=== PATIENT | male | born 1975 | race Caucasian/White ===

== ENCOUNTER 2020-11-19 07:59 | Outpatient (CLI) | payer OTHER, SELFPAY ==
--- NOTE | ~2020-11-19 | US_ITS ---
EXAMINATION: US abdomen complete DATE: 11/19/2020 08:25 INDICATION: Right upper quadrant abdominal pain. Weight loss. TECHNIQUE: Multiple grayscale and Doppler ultrasound images of the abdomen were obtained. COMPARISON: CT abdomen and pelvis 05/24/2019 FINDINGS: The pancreas is obscured by bowel gas. Abdominal aorta is normal in caliber. Inferior vena cava is normal. There is diffuse hepatic steatosis. There is normal flow in main portal vein. The gal lbladder is normal in size. No gallstones or gallbladder wall thickening. There was no sonographic Mu rphy sign. The common duct is normal and measures 4 mm. The kidneys are normal in size. The spleen is normal in size. IMPRESSION: 1. Diffuse hepatic steatosis. Reviewed, dictated and finalized at location B.
== END 2020-11-19 08:00 | disposition home or self-care (01) ==
PROVIDERS: PCP Physician Assistant; Visit Provider Physician Assistant
DX: R10.11 Right upper quadrant pain (principal); R63.4 Abnormal weight loss; K76.0 Fatty (change of) liver, not elsewhere classified
CPT/HCPCS: 76700

== ENCOUNTER 2020-12-09 12:59 | Emergency (ER) | payer OTHER, SELFPAY ==
[2020-12-09 13:04] VITALS: BP 139/94; PULSE 87; RESP 18; TEMP 36.4; O2SAT 99
--- NOTE | 2020-12-09 15:34 | ED.GENADULT ---
HPI - General Adult General Chief complaint: Unspecified Stated complaint: NERVE PAIN THROUGHOUT MY BODY Time Seen by Provider: 12/09/20 15:09 Source: patient Mode of arrival: ambulatory Limitations: no limitations History of Present Illness HPI narrative: Patient is a 45-year-old male complaining of nerve pain, bilateral lower extremities, bilateral upper extremities, face and back that started 4 weeks ago. Patient states that he had similar episode back in June when he was diagnosed with diabetes but switch his diet to keto and start exercising lost approximately 50 pounds is now he is off Metformin, and not diabetic anymore. Patient states that he has not had the nerve pain since he was diagnosed with diabetes 6 months ago but has recurred the past 4 weeks. Patient states that he has seen his family doctor and referred to a neurologist but still waiting for an appointment. Patient is not on any neuropathic pain medication. Patient denies any speech or visual disturbance, focal weakness or numbness, chest pain, shortness of breath, abdominal pain, nausea, vomiting, fever or chills. Related Data Allergies Allergy/AdvReac Type Severity Reaction Status Date / Time No Known Allergies Allergy Verified 05/24/19 10:39 Review of Systems Review of Systems: All systems reviewed & are unremarkable except as noted in HPI and below Constitutional: Constitutional: Denies body ache(s), Denies chills, Denies excessive sweating, Denies fatigue, Denies fever(s), Denies headache(s), Denies lethargy, Denies malaise, Denies weakness and Denies weight loss Eyes: Eyes: Denies blurry vision, Denies change in vision and Denies loss of vision ENT: Denies dizziness, Denies ear discharge, Denies headache(s), Denies lip swelling, Denies epistaxis, Denies nasal congestion, Denies neck pain, Denies throat swelling and Denies tongue swelling Cardiovascular: Cardiovascular: Denies chest pain, Denies chest pain at rest, Denies chest pain with activity, Denies diaphoresis, Denies rapid heart rate, Denies edema, Denies irregular heart rhythm, Denies lightheadedness, Denies palpitations, Denies dyspnea and Denies dyspnea on exertion Respiratory: Respiratory: Denies chest congestion, Denies cough, Denies hemoptysis, Denies dyspnea and Denies dyspnea on exertion Gastrointestinal: Gastrointestinal: Denies abdominal pain, Denies melena, Denies hematochezia, Denies diarrhea, Denies nausea, Denies vomiting and Denies hematemesis Musculoskeletal: Musculoskeletal: Denies abnormal gait, Denies deformity, Denies joint swelling, Denies limited range of motion, Denies neck pain and Denies numbness Neurologic: Denies Abnormal speech present, Denies abnormal gait, Denies confusion, Denies dizziness, Denies headache(s), Denies focal weakness, Denies loss of vision, Denies numbness, Denies Other visual disturbances, Denies Sensory deficit (Neuro) and Denies weakness Psychiatric: Psychiatric: Denies confusion, Denies depression, Denies auditory hallucinations, Denies homicidal ideation and Denies suicidal ideation Endocrine: Endocrine: Denies cold intolerance, Denies excessive sweating, Denies fatigue, Denies heat intolerance and Denies palpitations Hematologic/Lymphatic: Hematologic/Lymphatic: Denies easy bleeding and Denies easy bruising Allergic/Immunologic: Allergic/Immunologic: Denies lip swelling, Denies throat swelling and Denies tongue swelling PMF Past Medical History Medical History Healthy adult Obesity (BMI 30.0-34.9) Obesity (BMI 30.0-34.9) (Unknown) Social History Social History Smoking status: Never smoker Alcohol intake: current Gender identity (if verbalized by the patient): Male Exam Const: General: cooperative, healthy appearing, comfortable, no acute distress, well developed, alert and awake; No confusion Orientation/consciousness:
[2020-12-09 15:35] LABS: Basophils Absolute Auto 0.1 K/mm3 (0.0-0.1); Basophils Percent Auto 0.8 % (0.2-1.2); Eosinophils Absolute Auto 0.2 K/mm3 (0-0.3); Eosinophils Percent Auto 1.4 % (0-4.4); Hematocrit 46.4 % (42.0-52.0); Hemoglobin 14.9 g/dL (14.0-18.0); Immature Granulocyte Absolute 0.02 K/mm3 (0.00-0.031); Immature Granulocyte Percent A 0.2 % (0-0.5); Lymphocytes Percent Auto 25.6 % (18.3-44.2); Mean Corpuscular HGB Conc 32.1 g/dl (32-36); Mean Corpuscular Hemoglobin 26.5 pg (26-34); Mean Corpuscular Volume 82.4 fl (80-100); Mean Platelet Volume 10.8 fl (7.4-10.4); Monocytes Absolute Auto 0.7 K/mm3 (0.1-0.6); Monocytes Percent Auto 6.8 % (2.6-8.5); Neutrophils Absolute Auto 6.9 K/mm3 (1.3-6.7); Neutrophils Percent Auto 65.2 % (45.5-73.1); Platelet Count Result 256 k/mm3 (150-375); Red Blood Count 5.63 M/mm3 (4.6-6.20); Red Cell Distribution Width 13.3 % (11.5-14.5); White Blood Count 10.5 K/mm3 (4.5-10.0)
[2020-12-09 15:45] LABS: Alanine Aminotransferase 21 U/L (4-50); Albumin Level 4.9 g/dL (3.5-5.1); Alkaline Phosphatase 38 U/L (38-126); Anion Gap 9 mmol/L (8-16); Aspartate Amino Transferase 29 U/L (17-59); Bilirubin,Total 0.3 mg/dL (0.2-1.3); Blood Urea Nitrogen 17 mg/dL (9-20); Calcium 10.4 mg/dL (8.4-10.2); Carbon Dioxide 27 mmol/L (22-30); Chloride 103 mmol/L (98-107); Estimated CRCL calculation 112 ml/min; Estimated Glomerular Filt Rate > 60; Glucose 106 mg/dL (75-110); Potassium 4.3 mmol/L (3.4-5.0); Sodium 139 mmol/L (137-145)
[2020-12-09 15:50] VITALS: BP 144/86; PULSE 84; RESP 16; O2SAT 98
== END 2020-12-09 18:15 | disposition home or self-care (01) ==
PROVIDERS: Emergency Provider Emergency Medicine; PCP Physician Assistant
DX: G62.9 Polyneuropathy, unspecified (principal); E66.9 Obesity, unspecified; Z68.32 Body mass index [BMI] 32.0-32.9, adult
CPT/HCPCS: 36415; 80053; 85025; 99283

== ENCOUNTER 2023-02-07 13:00 | Emergency (ER) | payer OTHER, SELFPAY ==
[2023-02-07 13:16] VITALS: BP 161/100; PULSE 116; RESP 16; TEMP 36.7; O2SAT 98
--- NOTE | 2023-02-07 14:03 | PC.NURSE ---
provider to provider report given 1400.
--- NOTE | 2023-02-07 14:05 | ED.GENADULT ---
HPI - General Adult General Chief complaint: Headache Stated complaint: pain left side of head Source: patient Mode of arrival: ambulatory Limitations: no limitations History of Present Illness HPI narrative: Patient presents for evaluation of left-sided facial pain. Symptom onset 2 days ago. He indicates the pain is constant, squeezing, severe, rated 10/10 severity. He indicates he has a sensitivity in his gums of left upper and lower side of his mouth. He had similar symptoms in the past for which he saw his primary care provider. They attempted to order some imaging studies unsuccessfully, as his insurance would not cover that. He then saw a dentist who suspected his symptoms could be 2/2 impacted wisdom tooth. He had the tooth extracted and had temporary relief of his pain, however had recurrence a few days later. He does have periods of time where he has dental pain while chewing even soft food, citing pasta as an example. His pain does very in location of the left side of his face. He denies any chest pain or shortness of breath. He denies any facial droop, difficulty breathing or swallowing, visual impairments or change in sense of olfaction. No personal or family hx of CAD. He does not smoke. Related Data Home Medications Medication Instructions Recorded Confirmed gabapentin 600 mg tablet mg 02/07/23 metformin 500 mg tablet mg 02/07/23 Allergies Allergy/AdvReac Type Severity Reaction Status Date / Time No Known Allergies Allergy Verified 02/07/23 13:01 Review of Systems Review of Systems: CONSTITUTIONAL: Denies fever, chills, or sweats. EYES: Denies visual changes, redness, or discharge. ENT: reports left-sided facial pain. Denies rhinorrhea, congestion, sore throat, or otalgia. CARDIOVASCULAR: Denies chest pain, palpitations, or edema. RESPIRATORY: Denies cough or dyspnea. GASTROINTESTINAL: Denies abdominal pain, nausea, vomiting, or diarrhea. GENITOURINARY: Denies dysuria or hematuria. SKIN: Denies rash or itching. MUSCULOSKELETAL: Denies back pain, joint pain, or myalgia. NEUROLOGIC: Denies headache, numbness, dizziness, or weakness. PSYCHIATRIC: Denies anxiety or depression. [facility] Past Medical History Medical History (Updated 02/07/23 @ 14:10 by Meir Vinson, [facility], ) Diabetes Obesity (BMI 30.0-34.9) Obesity (BMI 30.0-34.9) (Unknown) Surgical History Surgical History History of appendectomy Family History Family History Father Family history non-contributory Social History Social History Smoking status: Never smoker Alcohol intake: current Alcohol use details: social Substance use: never Living arrangements: alone Gender identity (if verbalized by the patient): Male Sexual Orientation (if Verbalized by the Patient): Straight or Heterosexual Spiritual care concerns: No Exam Narrative: GENERAL: Well-appearing, well-nourished, and in no acute distress. HEAD: Normocephalic, atraumatic. EYES: PERRLA and EOMI. ENT: Nares clear, no rhinorrhea or epistaxis. Mucous membranes moist. Oropharynx without tonsillar hypertrophy exudate or other lesions. Bilateral TMs pearly asnchez nonbulging. There are several metallic fillings noted to the upper teeth on left side of his mouth. I do not appreciate a dental abscess NECK: Supple. No adenopathy or masses. No carotid bruits or JVD CHEST: Clear to auscultation. No respiratory distress. No wheezes rales or rhonchi HEART: Regular rate and rhythm. No murmur heard. Normal peripheral pulses. ABDOMEN: Soft, nontender, nondistended, normal active bowel sounds. EXTREMITIES: Normal range of motion. No edema. SKIN: Warm, dry, no rash. NEURO: No focal deficits. Alert and oriented x3. PSYCH: Normal mood and affect. Course Course Em
== END 2023-02-07 14:04 | disposition short-term general hospital (02) ==
PROVIDERS: Emergency Provider Nurse Practitioner; PCP Family Medicine
DX: R51.9 Headache, unspecified (principal); E11.9 Type 2 diabetes mellitus without complications; E66.9 Obesity, unspecified; Z68.38 Body mass index [BMI] 38.0-38.9, adult
CPT/HCPCS: 99213; G0463

== ENCOUNTER 2023-02-07 14:19 | Emergency (ER) | payer OTHER, SELFPAY ==
[2023-02-07] VITALS (22 sets, daily range): BP systolic 137–162; BP diastolic 81–116; PULSE 82–114; RESP 10–27; TEMP 36.7; O2SAT 94–100
--- NOTE | ~2023-02-07 | CT_ITS ---
EXAMINATION: CT brain wo con DATE: 02/07/2023 17:57 INDICATION: L facial pain/trigeminal neuralgia? . TECHNIQUE: Computed tomography (CT) of the head was performed without intravenous contrast. The mA wa s adjusted according to patient size. Iterative reconstruction technique was employed. The dose-lengt h product was 605.33 mGy-cm. COMPARISON: None. FINDINGS: No acute intracranial hemorrhage or extra-axial fluid collection. No hydrocephalus, mass, or herniation. No acute ischemic infarct. Unremarkable dural venous sinus attenuation. No acute osseous abnormality. The aerated spaces are clear. IMPRESSION: No acute intracranial process. Reviewed, dictated and finalized at location K.
--- NOTE | 2023-02-07 18:20 | ED.GENADULT ---
HPI - General Adult General Chief complaint: Unspecified Stated complaint: facial pain, neuro referal Time Seen by Provider: 02/07/23 18:06 Source: patient Mode of arrival: ambulatory Limitations: no limitations History of Present Illness HPI narrative: Patient is a 47-year-old male who presents ED with report of left-sided facial pain. Patient reports he has had intermittent pain over the last 2 months, occurring at random times, typically brief episodes of pain to his left forehead, left facial cheek, left-sided jaw. He has been managing this with ibuprofen, taking this frequently. He states since last night, pain has been constant and severe. Unable to find relief with ibuprofen. He was seen in urgent care and referred here for a CT and to be evaluated for trigeminal neuralgia. Patient denies any significant aggravating factors to the pain. States it occurs at random times. He has tried documenting when the pain occurs to find a pattern and has been unable to. Occasionally worse with eating. He notes he did have his left lower wisdom tooth removed a few months ago to try to help with the pain, but it has persisted. He has been evaluated by dentist and not felt to have a dental issue. Pain never extends more into head or to right side of face. Denies any fevers, dizziness, lightheadedness, vision changes, weakness, numbness. Related Data Home Medications Medication Instructions Recorded Confirmed gabapentin 600 mg tablet mg 02/07/23 metformin 500 mg tablet mg 02/07/23 Allergies Allergy/AdvReac Type Severity Reaction Status Date / Time No Known Allergies Allergy Verified 02/07/23 13:01 Review of Systems Review of Systems: CONSTITUTIONAL: Denies fever, chills, or sweats. EYES: Denies visual changes. ENT: See HPI. CARDIOVASCULAR: Denies chest pain. RESPIRATORY: Denies dyspnea. GASTROINTESTINAL: Denies nausea, vomiting. MUSCULOSKELETAL: See HPI. NEUROLOGIC: See HPI. All systems reviewed & are unremarkable except as noted in HPI and below PMFSH Past Medical History Medical History Diabetes Obesity (BMI 30.0-34.9) Obesity (BMI 30.0-34.9) (Unknown) Surgical History Surgical History History of appendectomy Family History Family History Father Family history non-contributory Social History Social History Smoking status: Never smoker Alcohol intake: current Alcohol use details: social Substance use: never Living arrangements: alone Gender identity (if verbalized by the patient): Male Sexual Orientation (if Verbalized by the Patient): Straight or Heterosexual Spiritual care concerns: No Exam Narrative: GENERAL: Well appearing, well-nourished, non-toxic, in no acute distress. HEAD: Normocephalic, atraumatic. EYES: PERRL/EOMI, conjunctivae clear bilaterally. No nystagmus. EARS: Bilateral cerumen impaction. THROAT: Pharynx clear, no exudate. MMs moist. Scattered dental caries, but no tenderness along gumlines, no areas of focal abscess. No trismus, stridor. NECK: Supple. No adenopathy, no masses. No meningeal signs. RESPIRATORY: Airway patent, respirations nonlabored. Clear to auscultation bilaterally, no rales, rhonchi, wheezing. CARDIOVASCULAR: Regular rate and rhythm without murmurs, rubs, or gallops. Radial pulses 2+ and equal bilaterally. MUSCULOSKELETAL: Moves all extremities. Strength/ROM intact without gross deformities. SKIN: Warm, dry, normal color. No rashes. NEURO: A&O X3. Speech clear. Follows commands. CN II-XII intact. Sensation grossly intact. Steady gait. No ataxic movements. Strength 5/5 in upper and lower extremities bilaterally. No pronator drift. PSYCHIATRIC: Appropriate mood and affect. Normal interaction. Course Vital
[2023-02-07] MEDS: ACETAMINOPHEN 500 MG TABLET 1000 MG PO (18:35)
[2023-02-07] MEDS: MORPHINE SULFATE (*CRX) 4 MG/ML INJ IV PUSH ×2 (18:42→20:01)
[2023-02-07] MEDS: ONDANSETRON INJ 4 MG/2 ML VIAL IV PUSH (18:44)
[2023-02-07] MEDS: carBAMazepine 200 MG TABLET PO (20:01)
[2023-02-07] MEDS: CARBAMIDE PEROXIDE 6.5% OT SOLN 15 ML BTL 5 DROP EACH EAR (20:02)
== END 2023-02-07 21:42 | disposition home or self-care (01) ==
PROVIDERS: Emergency Provider Physician Assistant; PCP Family Medicine
DX: G50.0 Trigeminal neuralgia (principal); H61.23 Impacted cerumen, bilateral; E11.9 Type 2 diabetes mellitus without complications; E66.9 Obesity, unspecified; Z79.84 Long term (current) use of oral hypoglycemic drugs
CPT/HCPCS: 69209; 70450; 96374; 96375; 96376; 99284; A9270; J2270; J2405